=== PATIENT | female | born 2000 | race Hispanic/Latino ===

== ENCOUNTER 2021-09-17 14:21 | Emergency (ER) | payer BC, OTHER ==
[~2021-09-17] VITALS: Ht 157.5 cm; Wt 53.5 kg
[2021-09-17] MEDS ORDERED: SOLU-MEDROL 40MG VIAL IJ ONE (15:30)
[2021-09-17] MEDS ORDERED: METH4TAB3 PO (16:31)
[2021-09-17 16:44] VITALS: BP 122/78
== END 2021-09-17 16:40 | disposition home or self-care (01) ==
LOC: EDH 14:21
DX: S39.012A Strain of muscle, fascia and tendon of lower back, initial encounter (principal); Z88.0 Allergy status to penicillin; V49.49XA Driver injured in collision with other motor vehicles in traffic accident, initial encounter; Y93.89 Activity, other specified; Y92.89 Other specified places as the place of occurrence of the external cause; Y99.8 Other external cause status
CPT/HCPCS: 72100; 81025; 96374; 99284; J2920